=== PATIENT | female | born 1975 | race Two or more races ===

== ENCOUNTER 2017-12-15 23:36 | Emergency (ER) | payer OTHER ==
[~2017-12-15] VITALS: Ht 172.7 cm; Wt 90.7 kg
[2017-12-16] MEDS ORDERED: SODIUM CHLORIDE 0.9% 1,000 ML IV ONE
[2017-12-16 00:13] LABS: Basophils # (auto) 0 uL; Basophils % (auto) 0.3 % (0.0-2.0); Eosinophils # (auto) 0.1 uL; Hemoglobin 9.2 g/dL (12.2-16.2); Lymphocytes # (auto) 1.3 uL; Monocytes # (auto) 0.5 uL; Red Cell Distribution Width 16.5 % (11.8-14.3)
[2017-12-16 00:14] LABS: Lymphocytes % (auto) 14.4 % (10.0-50.0); Monocytes % (auto) 5.3 % (0.0-12.0); White Blood Cell 9.2 10^3/uL (4.4-10.8)
[2017-12-16 00:15] LABS: Hematocrit 28.9 % (36.0-46.0); Mean Corpuscular Hemoglobin 24.9 pg (28.0-32.0); Mean Corpuscular Hgb Conc. 31.8 g/dL (32.0-36.0); Mean Corpuscular Volume 78.2 fL (80.0-100.0); Neutrophils # (auto) 7.2 uL; Nucleated Red Blood Cells % 0.1 %; Platelet Count (auto) 245 10^3/uL (140-450)
[2017-12-16 00:27] LABS: Albumin 3.4 g/dL (3.4-5.0); Anion Gap 9 (5-15); Aspartate Aminotransferase 24 U/L (15-37); Blood Urea Nitrogen 14 mg/dL (7-18); Carbon Dioxide 20 mmol/L (21-32); Chloride 108 mmol/L (98-107); GFR African American 72 mL/min; GFR Non-African American 59 mL/min; Glucose 123 mg/dL (74-106); Magnesium 2.1 mg/dL (1.6-2.6); Potassium 4.3 mmol/L (3.5-5.1); Sodium 137 mmol/L (136-145)
[2017-12-16 00:41] LABS: Acetaminophen < 2.0 ug/mL (10-30); Salicylate < 1.7 mg/dL (2.8-20.0)
[2017-12-16 00:49] LABS: Alanine Aminotransferase 35 U/L (13-56); Alkaline Phosphatase 57 U/L (45-117); Bilirubin, Total 0.3 mg/dL (0.2-1.0); Total Protein 7.5 g/dL (6.4-8.2)
[2017-12-16] MEDS ORDERED: SODIUM CHLORIDE 0.9% 1,000 ML IVB ONE (07:02)
[2017-12-16 07:09] LABS: Albumin 3.3 g/dL (3.4-5.0); Potassium 4.3 mmol/L (3.5-5.1)
[2017-12-16 07:11] LABS: BUN/Creatinine Ratio 13.7
[2017-12-16 07:13] LABS: Bilirubin, Total 0.4 mg/dL (0.2-1.0); Total Protein 7.4 g/dL (6.4-8.2)
[2017-12-16 11:48] VITALS: BP 107/93
== END 2017-12-16 12:07 | disposition home or self-care (01) ==
LOC: ER 23:46 → EEVIPCON 23:46 → ER 12-16 12:07
DX: R55 Syncope and collapse (principal); D50.9 Iron deficiency anemia, unspecified; K04.7 Periapical abscess without sinus; E66.01 Morbid (severe) obesity due to excess calories; E46 Unspecified protein-calorie malnutrition; Z68.30 Body mass index [BMI] 30.0-30.9, adult; Z90.49 Acquired absence of other specified parts of digestive tract
CPT/HCPCS: 36415; 71046; 80053; 80329; 81002; 83735; 84443; 84484; 85025; 93005; 96360; 96361; 99285; J7030